=== PATIENT | female | born 1940 | race Hispanic/Latino ===

== ENCOUNTER 2020-05-11 09:02 | Emergency (ER) | payer OTHER ==
[2020-05-11 09:19] LABS: BASOPHILS % (AUTO) 0.6 % (0.0-5.0); EOSINOPHILS % (AUTO) 1.7 % (0.0-8.0); HEMATOCRIT 43.9 % (36-48); MEAN CORPUSCULAR HEMOGLOBIN 30.1 pg (27.0-33.0); MEAN CORPUSCULAR HGB CONC 33.3 g/dL (32.0-36.0); MEAN CORPUSCULAR VOLUME 90.5 fL (79-99); MONOCYTES % (AUTO) 5.8 % (3.0-13.0); NEUTROPHILS % (AUTO) 59.7 % (40.0-77.0); PLATELET COUNT (AUTO) 326 K/uL (130-400); RED BLOOD CELL COUNT(AUTO) 4.85 MIL/uL (4.00-5.50); RED CELL DISTRIBUTION WIDTH 12.3 % (11.0-15.5); WHITE BLOOD COUNT (AUTO) 9.6 K/uL (4.8-10.8)
[2020-05-11 09:26] LABS: CREATININE 0.9 mg/dL (0.5-1.5); POTASSIUM 3.9 mmol/L (3.5-5.1)
[2020-05-11 09:28] LABS: INR 0.97 (0.85-1.15); PARTIAL THROMBOPLASTIN TIME 24.7 SEC (26.3-35.5); PROTHROMBIN TIME 10.5 SEC (9.6-11.6)
[2020-05-11 09:31] LABS: ALBUMIN 3.8 g/dL (3.5-5.0); BILIRUBIN,TOTAL 0.5 mg/dL (0.2-1.0); TOTAL PROTEIN, SERUM 7.4 g/dL (6.0-8.3)
== END 2020-05-11 11:04 | disposition home or self-care (01) ==
LOC: EDH 09:02
DX: R07.89 Other chest pain (principal); Z20.828 Contact with and (suspected) exposure to other viral communicable diseases; I10 Essential (primary) hypertension; E78.00 Pure hypercholesterolemia, unspecified
CPT/HCPCS: 36415; 71045; 80053; 84484; 85025; 85610; 85730; 87426; 93005; 99285; U0003

== ENCOUNTER 2023-02-10 07:47 | Inpatient (IN) | payer OTHER ==
[2023-02-10] VITALS (24 sets, daily range): BP systolic 116–240; BP diastolic 35–121; PULSE 54–97; RESP 14–18; O2SAT 99
[~2023-02-10] VITALS: Ht 162.6 cm; Wt 65.8 kg
[2023-02-10] MEDS ORDERED: ONDANSETRON 4MG INJ IVP ONE (08:30)
[2023-02-10] MEDS ORDERED: MORPHINE 2 MG SYG IVP ONE (08:30)
[2023-02-10 08:49] LABS: BASOPHILS # (AUTO) 0.06 K/uL (0.00-0.20); BASOPHILS % (AUTO) 0.6 % (0.0-5.0); EOSINOPHILS # (AUTO) 0.06 K/uL (0.00-0.70); EOSINOPHILS % (AUTO) 0.6 % (0.0-8.0); HEMATOCRIT 40.1 % (36-48); IMMATURE GRANULOCYTE ABSOLUTE 0.04 K/uL (0-1); LYMPHOCYTES # (AUTO) 1.9 K/uL (1.0-4.8); LYMPHOCYTES % (AUTO) 18.9 % (21.0-51.0); MEAN CORPUSCULAR HEMOGLOBIN 29.1 pg (27.0-33.0); MEAN CORPUSCULAR HGB CONC 32.2 g/dL (32.0-36.0); MEAN CORPUSCULAR VOLUME 90.5 fL (79-99); MONOCYTES # (AUTO) 0.6 K/uL (0.1-1.0); MONOCYTES % (AUTO) 5.9 % (3.0-13.0); NEUTROPHILS # (AUTO) 7.3 K/uL (1.8-7.7); NEUTROPHILS % (AUTO) 73.6 % (40.0-77.0); PLATELET COUNT (AUTO) 272 K/uL (130-400); RED BLOOD CELL COUNT(AUTO) 4.43 MIL/uL (4.00-5.50); WHITE BLOOD COUNT (AUTO) 9.9 K/uL (4.8-10.8)
[2023-02-10 09:02] LABS: INR 0.94 (0.85-1.15); PROTHROMBIN TIME 10.9 SEC (9.6-11.6)
[2023-02-10 09:03] LABS: PARTIAL THROMBOPLASTIN TIME 25.9 SEC (26.3-35.5)
[2023-02-10 09:16] LABS: ALBUMIN 3.4 g/dL (3.5-5.0); BILIRUBIN,TOTAL 0.5 mg/dL (0.2-1.0); CREATININE 0.9 mg/dL (0.5-1.5); POTASSIUM 3.7 mmol/L (3.5-5.1); TOTAL PROTEIN, SERUM 6.8 g/dL (6.0-8.3)
[2023-02-10] MEDS ORDERED: DOCUSATE SODIUM 100 MG CAP PO PRN (11:00)
[2023-02-10] MEDS ORDERED: ONDANSETRON 4MG INJ IVP PRN ×2 (11:00→14:30)
[2023-02-10] MEDS ORDERED: LABETALOL 20MG SYG IV PRN (11:00)
[2023-02-10] MEDS ORDERED: ACETAMINOPHEN 650 MG SUPPOSITORY RC PRN (11:00)
[2023-02-10] MEDS ORDERED: ACETAMINOPHEN 325 MG TAB PO PRN (11:00)
[2023-02-10] MEDS ORDERED: LACTULOSE 20 GM/30 ML UDCUP PO PRN (11:00)
[2023-02-10] MEDS ORDERED: HYDRALAZINE 20MG/ML VIAL IV PRN (11:00)
[2023-02-10] MEDS ORDERED: MORPHINE 4 MG SYG IVP PRN (11:00)
[2023-02-10] MEDS ORDERED: TRAMADOL HCL 50 MG TABLET PO PRN (11:00)
[2023-02-10] MEDS ORDERED: LISI1TAB49 PO (11:02)
[2023-02-10] MEDS ORDERED: PRAV40TA3 PO (11:02)
[2023-02-10] MEDS ORDERED: PROPOFOL 10 MG/ML 20ML VIAL IV ONE ×2 (11:36→13:08)
[2023-02-10] MEDS ORDERED: ROCURONIUM 10MG/1ML SYR 10 MG/ML ML ONE ×3 (11:36→13:18)
[2023-02-10] MEDS ORDERED: FENTANYL CITRATE PF 50 MCG/1 ML 5ML AMP IV ONE (11:36)
[2023-02-10] MEDS ORDERED: MIDAZOLAM HCL 1 MG/ML 2ML VIAL ONE (11:36)
[2023-02-10] MEDS ORDERED: ROPIVACAINE 0.5% 5MG/ML 30ML IJ ONE (12:12)
[2023-02-10] MEDS ORDERED: TRANEXAMIC ACID 1000MG/10ML ONE (12:12)
[2023-02-10] MEDS ORDERED: ONDANSETRON 4MG INJ ONE ×2 (12:20→14:32)
[2023-02-10] MEDS ORDERED: PHENYLEPHRINE HCL 10 MG/ML 1ML VIAL IV ONE (12:41)
[2023-02-10] MEDS ORDERED: CEFAZOLIN SODIUM 2 GM VIAL IVPB ONE (12:47)
[2023-02-10] MEDS ORDERED: TRANEXAMIC ACID 1000MG/10ML IV ONE (12:48)
[2023-02-10] MEDS ORDERED: CEFAZOLIN SODIUM 1 GM VIAL ONE (13:06)
[2023-02-10] MEDS ORDERED: BUPIVACAINE/PF 0.25% 30ML VIAL IJ ONE (13:49)
[2023-02-10] MEDS ORDERED: GLYCOPYRROLATE 1 MG/5 ML SYRINGE ONE (14:04)
[2023-02-10] MEDS ORDERED: NEOSTIGMINE 5MG/5ML SYR IV ONE (14:04)
[2023-02-10] MEDS ORDERED: FERROUS FUMARATE 324 MG TABLET PO PRN (14:30)
[2023-02-10] MEDS ORDERED: KETOROLAC 15MG/ML VIAL (15MG/ML) IV PRN (14:30)
[2023-02-10] MEDS ORDERED: POTASSIUM CHLORIDE 10% ELIXIR 20 MEQ/15 ML UDCUP PO PRN (14:30)
[2023-02-10] MEDS ORDERED: CALCIUM CARB 500MG PO PRN (14:30)
[2023-02-10] MEDS ORDERED: CYCLOBENZAPRINE HCL 10 MG TABLET PO PRN (14:30)
[2023-02-10] MEDS ORDERED: POTASSIUM CHLORIDE 20MEQ/100ML 100 ML IV PRN (14:30)
[2023-02-10] MEDS ORDERED: MEPERIDINE-PF 25 MG/ML SYG ONE (14:33)
[2023-02-10] MEDS ORDERED: FENTANYL CITRATE PF 50 MCG/1 ML 2ML VIAL ONE (14:43)
[2023-02-10] MEDS ORDERED: HYDRALAZINE 20MG/ML VIAL ONE (14:44)
[2023-02-10] MEDS ORDERED: KETOROLAC 15MG/ML VIAL (15MG/ML) ONE (14:53)
[2023-02-10] MEDS: KETOROLAC 15MG/ML VIAL (15MG/ML) IV SCH ×2 (14:59→21:54)
[2023-02-10] MEDS: 0.9%NACL 1000ML 1,000 ML IV SCH ×2 (16:02→16:21)
[2023-02-10] MEDS: CEFAZOLIN SODIUM 1 GM VIAL IVPB SCH (20:08)
[2023-02-10] MEDS: ATORVASTATIN 10 MG TABLET PO SCH (20:09)
[2023-02-10] MEDS: DOCUSATE SODIUM 100 MG CAP PO SCH (20:09)
[2023-02-11] VITALS (8 sets, daily range): BP systolic 99–155; BP diastolic 42–77; PULSE 88–94; RESP 18–19; O2SAT 95
[2023-02-11] MEDS: 0.9%NACL 1000ML 1,000 ML IV SCH ×4 (00:20→12:48)
[2023-02-11] MEDS: HYDROCODONE/ACETAMINOPHEN 5/325 MG TAB PO PRN ×3 (02:44→20:51)
[2023-02-11] MEDS: CEFAZOLIN SODIUM 1 GM VIAL IVPB SCH (03:54)
[2023-02-11 04:42] LABS: HEMATOCRIT 34.3 % (36-48); MEAN CORPUSCULAR HEMOGLOBIN 29.7 pg (27.0-33.0); MEAN CORPUSCULAR HGB CONC 32.9 g/dL (32.0-36.0); RED BLOOD CELL COUNT(AUTO) 3.81 MIL/uL (4.00-5.50); RED CELL DISTRIBUTION WIDTH 13.2 % (11.0-15.5); WHITE BLOOD COUNT (AUTO) 14.9 K/uL (4.8-10.8)
[2023-02-11 05:22] LABS: CREATININE 0.7 mg/dL (0.5-1.5); MAGNESIUM 1.6 mg/dL (1.80-2.40); PHOSPHORUS 2.8 mg/dL (2.5-4.9); POTASSIUM 3.5 mmol/L (3.5-5.1); THYROID STIMULATING HORMONE 1.08 uIU/mL (0.36-3.74)
[2023-02-11] MEDS: KCL 20 MEQ ERTAB PO PRN (06:06)
[2023-02-11] MEDS: KETOROLAC 15MG/ML VIAL (15MG/ML) IV SCH (06:06)
[2023-02-11] MEDS: MAGNESIUM 2GM PREMIX 50ML 50 ML IV PRN (06:22)
[2023-02-11] MEDS: LISINOPRIL 10 MG TABLET PO SCH (08:52)
[2023-02-11] MEDS: HYDROCHLOROTHIAZIDE 25 MG TABLET PO SCH (08:52)
[2023-02-11] MEDS: DOCUSATE SODIUM 100 MG CAP PO SCH ×2 (08:52→20:51)
[2023-02-11] MEDS: POLYETHYLENE GLYCOL 3350 17 GM POWD.PACK PO SCH (08:53)
[2023-02-11] MEDS: PANTOPRAZOLE 40 MG TAB DR PO SCH (08:53)
[2023-02-11] MEDS: ENOXAPARIN SODIUM 40 MG/0.4 ML SYRINGE SQ SCH (08:54)
[2023-02-11] MEDS ORDERED: NON-FORMULARY MEDICATION 1 EACH (Lisinopril/Hydrochlorothiazide (Lisinopril-Hctz 10-12.5 m PO SCH (09:00)
[2023-02-11] MEDS ORDERED: NON-FORMULARY MEDICATION 1 EACH (Pravastatin Sodium 40 MG) PO SCH (17:00)
[2023-02-11] MEDS: ATORVASTATIN 10 MG TABLET PO SCH (20:51)
[2023-02-12] VITALS (9 sets, daily range): BP systolic 88–128; BP diastolic 47–60; PULSE 61–101; RESP 16–20; O2SAT 96
[2023-02-12] MEDS: HYDROCODONE/ACETAMINOPHEN 5/325 MG TAB PO PRN (06:11)
[2023-02-12] MEDS: PANTOPRAZOLE 40 MG TAB DR PO SCH (08:08)
[2023-02-12] MEDS: DOCUSATE SODIUM 100 MG CAP PO SCH ×2 (08:08→21:03)
[2023-02-12] MEDS: POLYETHYLENE GLYCOL 3350 17 GM POWD.PACK PO SCH (08:08)
[2023-02-12] MEDS: LISINOPRIL 10 MG TABLET PO SCH (08:09)
[2023-02-12] MEDS: HYDROCHLOROTHIAZIDE 25 MG TABLET PO SCH (08:09)
[2023-02-12] MEDS: ENOXAPARIN SODIUM 40 MG/0.4 ML SYRINGE SQ SCH (08:09)
[2023-02-12 13:54] LABS: HEMATOCRIT 33.9 % (36-48); MEAN CORPUSCULAR HEMOGLOBIN 29.7 pg (27.0-33.0); MEAN CORPUSCULAR HGB CONC 32.2 g/dL (32.0-36.0); MEAN CORPUSCULAR VOLUME 92.4 fL (79-99); RED BLOOD CELL COUNT(AUTO) 3.67 MIL/uL (4.00-5.50); RED CELL DISTRIBUTION WIDTH 13.2 % (11.0-15.5); WHITE BLOOD COUNT (AUTO) 17.9 K/uL (4.8-10.8)
[2023-02-12 14:02] LABS: CREATININE 0.7 mg/dL (0.5-1.5); POTASSIUM 3.7 mmol/L (3.5-5.1)
[2023-02-12] MEDS ORDERED: ACETAMINOPHEN WITH CODEINE 1 TAB TAB PO PRN (17:30)
[2023-02-12] MEDS ORDERED: HYDROCODONE/ACETAMINOPHEN 5/325 MG TAB PO PRN (20:30)
[2023-02-12] MEDS: ATORVASTATIN 10 MG TABLET PO SCH (21:03)
[2023-02-12 21:39] LABS: APPEARANCE,URINE CLEAR (CLEAR); BILIRUBIN,URINE NEGATIVE (NEGATIVE); COLOR,URINE YELLOW (YELLOW); GLUCOSE, URINE (UA) NEGATIVE (NEGATIVE); KETONES,URINE NEGATIVE (NEGATIVE); LEUKOCYTE ESTERASE ,URINE 25 Leu/uL (NEGATIVE); NITRATE,URINE NEGATIVE (NEGATIVE); PH,URINE 5.5 (5.0-8.0); PROTEIN,URINE 10 mg/dL (NEGATIVE); UROBILINOGEN,URINE 0.2 mg/dL (0.2-1.0)
[2023-02-12 21:41] LABS: ADD UA MICROSCOPIC YES
[2023-02-12 21:43] LABS: BACTERIA,URINE RARE /HPF (None Seen); MUCUS,URINE RARE LPF (None Seen); NON-SQUAMOUS EPITHELIAL CELL <1 /HPF (0-2); RBC,URINE 0-1 /HPF (0-1); SQUAMOUS EPITHELIAL CELL,UR FEW /HPF (0-2)
[2023-02-13] VITALS (7 sets, daily range): BP systolic 109–122; BP diastolic 49–64; PULSE 89–93; RESP 16–18; O2SAT 95–97
[2023-02-13 06:03] LABS: HEMATOCRIT 30.1 % (36-48); MEAN CORPUSCULAR HGB CONC 32.6 g/dL (32.0-36.0); RED BLOOD CELL COUNT(AUTO) 3.27 MIL/uL (4.00-5.50); RED CELL DISTRIBUTION WIDTH 13.2 % (11.0-15.5); WHITE BLOOD COUNT (AUTO) 13.3 K/uL (4.8-10.8)
[2023-02-13 06:18] LABS: CREATININE 0.6 mg/dL (0.5-1.5); MAGNESIUM 2.1 mg/dL (1.80-2.40); POTASSIUM 3.6 mmol/L (3.5-5.1)
[2023-02-13] MEDS: CEFTRIAXONE 2GM VIAL IVPB SCH (08:01)
[2023-02-13] MEDS: ENOXAPARIN SODIUM 40 MG/0.4 ML SYRINGE SQ SCH (08:01)
[2023-02-13] MEDS: DOCUSATE SODIUM 100 MG CAP PO SCH ×2 (08:01→20:33)
[2023-02-13] MEDS: POLYETHYLENE GLYCOL 3350 17 GM POWD.PACK PO SCH (08:01)
[2023-02-13] MEDS: PANTOPRAZOLE 40 MG TAB DR PO SCH (08:01)
[2023-02-13] MEDS: LISINOPRIL 10 MG TABLET PO SCH (08:02)
[2023-02-13] MEDS: HYDROCHLOROTHIAZIDE 25 MG TABLET PO SCH (08:02)
[2023-02-13] MEDS: TRAMADOL HCL 50 MG TABLET PO PRN ×2 (11:00→20:33)
[2023-02-13] MEDS ORDERED: KCL 20 MEQ ERTAB PO PRN (13:30)
[2023-02-13] MEDS ORDERED: POTASSIUM CHLORIDE 20MEQ/100ML 100 ML IV PRN (13:30)
[2023-02-13] MEDS ORDERED: POTASSIUM CHLORIDE 10% ELIXIR 20 MEQ/15 ML UDCUP PO PRN (13:30)
[2023-02-13] MEDS: KCL 20 MEQ ERTAB PO PRN ×2 (13:49→20:34)
[2023-02-13] MEDS ORDERED: BISACODYL 10 MG SUPP.RECT RC PRN (14:30)
[2023-02-13] MEDS: ATORVASTATIN 10 MG TABLET PO SCH (20:33)
[2023-02-14 04:34] LABS: MEAN CORPUSCULAR HEMOGLOBIN 29.6 pg (27.0-33.0); MEAN CORPUSCULAR HGB CONC 32.3 g/dL (32.0-36.0); MEAN CORPUSCULAR VOLUME 91.5 fL (79-99); RED BLOOD CELL COUNT(AUTO) 3.28 MIL/uL (4.00-5.50); RED CELL DISTRIBUTION WIDTH 13.1 % (11.0-15.5); WHITE BLOOD COUNT (AUTO) 10.8 K/uL (4.8-10.8)
[2023-02-14 04:39] VITALS: BP 127/71; PULSE 85; RESP 16
[2023-02-14 04:44] LABS: CREATININE 0.6 mg/dL (0.5-1.5); MAGNESIUM 1.9 mg/dL (1.80-2.40); POTASSIUM 3.8 mmol/L (3.5-5.1)
[2023-02-14] MEDS: CEFTRIAXONE 2GM VIAL IVPB SCH (05:02)
[2023-02-14 05:27] LABS: SARS-CoV-2, RNA, NAAT NEGATIVE SARS CoV-2 (NEGATIVE)
[2023-02-14 05:32] LABS: INFLUENZA TYPE A Negative For Type A (NEGATIVE); INFLUENZA TYPE B Negative For Type B (NEGATIVE)
[2023-02-14] MEDS: MAGNESIUM 2GM PREMIX 50ML 50 ML IV PRN (06:43)
[2023-02-14 07:31] VITALS: BP 123/58; PULSE 82; RESP 19
[2023-02-14] MEDS: HYDROCHLOROTHIAZIDE 25 MG TABLET PO SCH ×2 (09:00→09:53)
[2023-02-14] MEDS: LISINOPRIL 10 MG TABLET PO SCH ×2 (09:00→09:53)
[2023-02-14] MEDS: ENOXAPARIN SODIUM 40 MG/0.4 ML SYRINGE SQ SCH (09:51)
[2023-02-14] MEDS: POLYETHYLENE GLYCOL 3350 17 GM POWD.PACK PO SCH (09:51)
[2023-02-14] MEDS: DOCUSATE SODIUM 100 MG CAP PO SCH (09:52)
[2023-02-14] MEDS: PANTOPRAZOLE 40 MG TAB DR PO SCH (09:52)
[2023-02-14 10:55] VITALS: BP 109/53; PULSE 91; RESP 18
== END 2023-02-14 18:15 | DRG 522 ==
LOC: EDH 07:47 → EDHIP 10:42 → 4CH 15:25
PROVIDERS: ADMIT Internal Medicine Critical Care Medicine; ATTEND Internal Medicine Critical Care Medicine
PROC: 0SRR0JZ Replacement of Right Hip Joint, Femoral Surface with Synthetic Substitute, Open Approach (ICD-10-PCS; principal; 2023-02-10 12:22)
DX: S72.001A Fracture of unspecified part of neck of right femur, initial encounter for closed fracture (principal); I10 Essential (primary) hypertension; N30.90 Cystitis, unspecified without hematuria; E78.5 Hyperlipidemia, unspecified; W18.39XA Other fall on same level, initial encounter; Z20.822 Contact with and (suspected) exposure to COVID-19; Y93.01 Activity, walking, marching and hiking; Y92.89 Other specified places as the place of occurrence of the external cause; Y99.8 Other external cause status; I95.9 Hypotension, unspecified; D72.89 Other specified disorders of white blood cells; Z79.899 Other long term (current) drug therapy
CPT/HCPCS: 36415; 71045; 73502; 73700; 80048; 80053; 81001; 83605; 83735; 84100; 84145; 84443; 84484; 85025; 85027; 85610; 85730; 86850; 86900; 86901; 87040; 87088; 87635; 87804; 93005; 97039; G0378; J0360; J0690; J0696; J1650; J1885; J2175; J2250; J2270; J2371; J2405; J2704; J2710; J2795; J3010; J3475; J3490; A4215; A4221; A4222; A4223; A4663

== ENCOUNTER 2023-09-09 20:48 | Emergency (ER) | payer OTHER ==
[~2023-09-09 20:48] MED LIST: LISI1TAB49 PO; PRAV40TA3 PO
[2023-09-09 21:00] VITALS: PULSE 97; O2SAT 99
[2023-09-09] MEDS: DIAZEPAM 5 MG/ML 2 ML SYG ONE (23:25)
[2023-09-09] MEDS: DIAZEPAM 5 MG/ML 2 ML SYG IVP ONE (23:27)
[2023-09-09] MEDS: PROPOFOL 10 MG/ML 20ML VIAL IV ONE (23:28)
[2023-09-09 23:29] LABS: BASOPHILS # (AUTO) 0.05 K/uL (0.00-0.20); BASOPHILS % (AUTO) 0.2 % (0.0-5.0); EOSINOPHILS # (AUTO) 0.04 K/uL (0.00-0.70); EOSINOPHILS % (AUTO) 0.2 % (0.0-8.0); HEMATOCRIT 34.4 % (36-48); IMMATURE GRANULOCYTE ABSOLUTE 0.17 K/uL (0-1); LYMPHOCYTES # (AUTO) 1.5 K/uL (1.0-4.8); LYMPHOCYTES % (AUTO) 6.9 % (21.0-51.0); MEAN CORPUSCULAR HEMOGLOBIN 31.1 pg (27.0-33.0); MEAN CORPUSCULAR VOLUME 91.5 fL (79-99); MONOCYTES % (AUTO) 4.7 % (3.0-13.0); NEUTROPHILS # (AUTO) 18.9 K/uL (1.8-7.7); NEUTROPHILS % (AUTO) 87.2 % (40.0-77.0); PLATELET COUNT (AUTO) 266 K/uL (130-400); RED BLOOD CELL COUNT(AUTO) 3.76 MIL/uL (4.00-5.50); RED CELL DISTRIBUTION WIDTH 13.2 % (11.0-15.5); WHITE BLOOD COUNT (AUTO) 21.7 K/uL (4.8-10.8)
[2023-09-09] MEDS: PROPOFOL 10 MG/ML 20ML VIAL IV SCH (23:29)
[2023-09-09 23:43] LABS: CREATININE 0.7 mg/dL (0.5-1.0); POTASSIUM 3.5 mmol/L (3.5-5.1)
[2023-09-09 23:44] LABS: INR 0.94 (0.85-1.15); PROTHROMBIN TIME 11.1 SEC (9.6-11.6)
[2023-09-09 23:46] LABS: PARTIAL THROMBOPLASTIN TIME 25.1 SEC (26.3-35.5)
[2023-09-09 23:47] LABS: ALBUMIN 3.5 g/dL (3.5-5.0); BILIRUBIN,TOTAL 0.5 mg/dL (0.2-1.0); MAGNESIUM 1.9 mg/dL (1.80-2.40); TOTAL PROTEIN, SERUM 6.6 g/dL (6.0-8.3)
[2023-09-10 04:26] VITALS: BP 117/56; RESP 18
[2023-09-10] MEDS ORDERED: ACET-2079 PO (04:42)
== END 2023-09-10 04:54 | disposition home or self-care (01) ==
LOC: EDH 20:48
DX: S43.084A Other dislocation of right shoulder joint, initial encounter (principal); S00.03XA Contusion of scalp, initial encounter; I10 Essential (primary) hypertension; W01.0XXA Fall on same level from slipping, tripping and stumbling without subsequent striking against object, initial encounter; Y93.89 Activity, other specified; Y92.89 Other specified places as the place of occurrence of the external cause; Y99.8 Other external cause status
CPT/HCPCS: 99285; 23650; 96374; 70450; 71045; 83735; 80053; 85025; 85610; 85730; 36415; 73030 ×3; 93005; 73200; J3360; J2704; J3490

== ENCOUNTER 2024-01-10 13:36 | Emergency (ER) | payer OTHER ==
[~2024-01-10] VITALS: Ht 157.5 cm; Wt 68.0 kg
[~2024-01-10 13:36] MED LIST changes: +ACET-2079 PO
[2024-01-10 16:52] VITALS: BP 124/60; PULSE 72; RESP 18; O2SAT 97
== END 2024-01-10 17:10 | disposition home or self-care (01) ==
LOC: EDH 13:36
DX: S70.02XA Contusion of left hip, initial encounter (principal); I10 Essential (primary) hypertension; Z79.899 Other long term (current) drug therapy; W01.0XXA Fall on same level from slipping, tripping and stumbling without subsequent striking against object, initial encounter; Y93.01 Activity, walking, marching and hiking; Y92.89 Other specified places as the place of occurrence of the external cause; Y99.8 Other external cause status
CPT/HCPCS: 73502; 73562

== ENCOUNTER → 2024-03-14 | Outpatient (CLI) | payer OTHER ==
[~2024-03-14] MED LIST changes: +CEPH500C2 PO; +DONE5TAB33 PO; +OMEP20CA12 PO
== END | disposition home or self-care (01) ==
LOC: SHCH 07:53
PROVIDERS: ATTEND Internal Medicine Cardiovascular Disease
DX: I08.3 Combined rheumatic disorders of mitral, aortic and tricuspid valves (principal); I11.9 Hypertensive heart disease without heart failure; E78.5 Hyperlipidemia, unspecified
CPT/HCPCS: 93306

== ENCOUNTER 2024-03-17 22:20 | Observation (INO) | payer OTHER ==
[~2024-03-17] VITALS: Ht 160 cm; Wt 64.1 kg
[~2024-03-17 22:20] MED LIST changes: -CEPH500C2 PO; -DONE5TAB33 PO; -OMEP20CA12 PO
[2024-03-17 23:27] LABS: BASOPHILS # (AUTO) 0.04 K/uL (0.00-0.20); BASOPHILS % (AUTO) 0.4 % (0.0-5.0); EOSINOPHILS # (AUTO) 0.27 K/uL (0.00-0.70); EOSINOPHILS % (AUTO) 2.7 % (0.0-8.0); HEMATOCRIT 36.2 % (36-48); IMMATURE GRANULOCYTE ABSOLUTE 0.02 K/uL (0-1); LYMPHOCYTES # (AUTO) 3.2 K/uL (1.0-4.8); LYMPHOCYTES % (AUTO) 31.9 % (21.0-51.0); MEAN CORPUSCULAR HEMOGLOBIN 30.5 pg (27.0-33.0); MEAN CORPUSCULAR HGB CONC 32.9 g/dL (32.0-36.0); MEAN CORPUSCULAR VOLUME 92.8 fL (79-99); MONOCYTES # (AUTO) 0.8 K/uL (0.1-1.0); MONOCYTES % (AUTO) 7.9 % (3.0-13.0); NEUTROPHILS # (AUTO) 5.8 K/uL (1.8-7.7); NEUTROPHILS % (AUTO) 56.9 % (40.0-77.0); PLATELET COUNT (AUTO) 249 K/uL (130-400); RED CELL DISTRIBUTION WIDTH 12.6 % (11.0-15.5); WHITE BLOOD COUNT (AUTO) 10.2 K/uL (4.8-10.8)
[2024-03-17 23:34] LABS: POTASSIUM 3.6 mmol/L (3.5-5.1)
[2024-03-17 23:55] LABS: APPEARANCE,URINE CLEAR (CLEAR); BILIRUBIN,URINE NEGATIVE (NEGATIVE); COLOR,URINE LIGHT-YELLOW (YELLOW); GLUCOSE, URINE (UA) NEGATIVE (NEGATIVE); KETONES,URINE NEGATIVE (NEGATIVE); LEUKOCYTE ESTERASE ,URINE 500 Leu/uL (NEGATIVE); NITRATE,URINE NEGATIVE (NEGATIVE); PH,URINE 5.5 (5.0-8.0); PROTEIN,URINE NEGATIVE (NEGATIVE); UROBILINOGEN,URINE 0.2 mg/dL (0.2-1.0)
[2024-03-17 23:56] LABS: ADD UA MICROSCOPIC YES
[2024-03-17 23:57] LABS: BACTERIA,URINE FEW /HPF (None Seen); MUCUS,URINE RARE LPF (None Seen); SQUAMOUS EPITHELIAL CELL,UR RARE /HPF (0-2); WBC,URINE 51-100 /HPF (0-1)
[2024-03-18] MEDS: cefTRIAXone 1G VIAL IVPB ONE (00:53)
[2024-03-18] MEDS: 0.9%NACL 1000ML 1,000 ML IV ONE (00:53)
[2024-03-18] MEDS ORDERED: hydrALAZine 20MG/ML VIAL IV PRN (02:00)
[2024-03-18] MEDS ORDERED: acetaMINOPHEN 325 MG TAB PO PRN (02:00)
[2024-03-18] MEDS ORDERED: acetaMINOPHEN 650 MG SUPPOSITORY RC PRN (02:00)
[2024-03-18] MEDS ORDERED: LAbetaLOL 20MG SYG IV PRN (02:00)
[2024-03-18] MEDS ORDERED: ondanSETRON 4MG INJ IVP PRN (02:00)
[2024-03-18 02:35] VITALS: BP 145/77; PULSE 76; RESP 18; TEMP 97.8
[2024-03-18 02:38] VITALS: BP 182/82; PULSE 73; RESP 19; TEMP 97.8
[2024-03-18 02:41] VITALS: BP 185/89; PULSE 78; RESP 18; TEMP 97.8
[2024-03-18] MEDS ORDERED: OMEP20CA12 PO (02:45)
[2024-03-18] MEDS ORDERED: DONE5TAB33 PO (02:45)
[2024-03-18 07:15] VITALS: BP 133/74; PULSE 72; RESP 18; TEMP 98
[2024-03-18 08:00] VITALS: O2SAT 97
[2024-03-18] MEDS ORDERED: DEXTROSE 50%-WATER 50 ML DISP.SYRIN IV PRN (08:00)
[2024-03-18] MEDS ORDERED: PoTASSium chl 10% ELIXIR 20MEQ 20 MEQ/15 ML UDCUP PO PRN (08:00)
[2024-03-18] MEDS ORDERED: GLUCAGON 1MG KIT 1 MG ML IM PRN (08:00)
[2024-03-18] MEDS ORDERED: PoTASSium chloRIDE 20MEQ/100ML 100 ML IV PRN (08:00)
[2024-03-18] MEDS: LISINOPRIL 10 MG TABLET PO SCH (08:51)
[2024-03-18] MEDS: hydroCHLOROthiazide 25 MG TABLET PO SCH (08:51)
[2024-03-18] MEDS: PANTOPrazole 40 MG TAB DR PO SCH (08:51)
[2024-03-18] MEDS: PoTASSium chloRIDE 20MEQ ER 20 MEQ ERTAB PO PRN (08:53)
[2024-03-18] MEDS ORDERED: NON-FORMULARY MEDICATION 1 EACH (Lisinopril/Hydrochlorothiazide (Lisinopril-Hctz 10-12.5 m PO SCH (09:00)
[2024-03-18 11:52] VITALS: BP 128/58; PULSE 82; RESP 18; TEMP 98.5
[2024-03-18] MEDS: HYDROcodone/APAP 5/325 1 TAB TABLET PO PRN (13:01)
[2024-03-18] MEDS ORDERED: CEPH500C2 PO (14:54)
[2024-03-18] MEDS ORDERED: atorVAStatin 10 MG TABLET PO SCH (21:00)
[2024-03-18] MEDS ORDERED: doNEPEZil HCL 5 MG TAB PO SCH (21:00)
[2024-03-19] MEDS ORDERED: cefTRIAXone 1G VIAL IVPB SCH (02:00)
== END 2024-03-18 16:30 | disposition home or self-care (01) ==
LOC: EDH 22:20 → EDHIP 03-18 01:38 → 4DH 03-18 02:03
PROVIDERS: ADMIT Internal Medicine; ATTEND Internal Medicine
DX: R29.6 Repeated falls (principal); N39.0 Urinary tract infection, site not specified; I10 Essential (primary) hypertension; S01.01XA Laceration without foreign body of scalp, initial encounter; E78.5 Hyperlipidemia, unspecified; E86.0 Dehydration; Z96.642 Presence of left artificial hip joint; Z79.899 Other long term (current) drug therapy; W18.30XA Fall on same level, unspecified, initial encounter; Y93.89 Activity, other specified; Y92.89 Other specified places as the place of occurrence of the external cause; Y99.8 Other external cause status
CPT/HCPCS: 99285; 80048; 85025; 87086; 81001; 36415; 70450; 93005; 96365; 97161; 97116; G0378 ×15; J7030; J0696